=== PATIENT | female | born 1995 | race Caucasian/White ===

== ENCOUNTER 2020-02-27 19:55 | Inpatient (IN) ==
[2020-02-27] MEDS ORDERED: BUTORPHANOL 2 MG/ML VIAL IV PRN (21:45)
[2020-02-27] MEDS ORDERED: LACTATED RINGERS 1,000 ML IV ONE (21:45)
[2020-02-27] MEDS ORDERED: ONDANSETRON 4 MG/2 ML VIAL IV PRN (21:45)
[2020-02-27 22:07] LABS: Basophils % 0.1 % (0.0-0.8); Eosinophils # 0.1 10*3/uL (0.0-0.87); Eosinophils % 0.6 % (0.00-10.9); Hematocrit 31.9 VOL% (35.7-47.0); Hemoglobin 10.8 GM/DL (12.0-16.0); Immature Granulocytes % 0.3 %; Immature Granulocytes Absolute 0.03 #; Lymphocytes # 2.9 10*3/uL (1.4-4.0); Lymphocytes % 32.3 % (21.3-54.2); Mean Corpuscular HGB Conc 33.9 GM/DL (32-36); Mean Corpuscular Volume 90.1 FL (87-102); Mean Platelet Volume 9.9 FL (9.6-12.0); Monocytes % 6.5 % (1.7-12.7); Neutrophils % 60.2 % (38.7-73.9); Platelet Count 165 T/CUMM (130-400); Red Blood Count 3.54 MC/CUMM (3.8-5.5); Red Cell Distribution Width 12.6 % (9.3-17.3)
[2020-02-27 22:28] LABS: Alanine Aminotransferase 16 U/L (13-56); Albumin 2.6 G/DL (3.4-5.0); Alkaline Phosphatase 175 U/L (45-117); Aspartate Amino Transferase 17 U/L (0-37); Bilirubin,Total < 0.39 MG/DL (0.2-1.0); Blood Urea Nitrogen 13 MG/DL (7-18); Calcium 8.5 MG/DL (8.5-10.1); Estimated Glom Filtration Rate 146 ML/MIN; Glucose 93 MG/DL (74-106); Osmolality,Calculated 274.7 MOS/KG (273-304); Total Protein 6.2 G/DL (6.4-8.3)
[2020-02-28] MEDS ORDERED: OXYTOCIN/LR 20 UNIT/1,000 ML BAG IV SCH (04:00)
[2020-02-28] MEDS: LACTATED RINGERS 1,000 ML IV SCH ×3 (04:23→19:30)
[2020-02-28] MEDS ORDERED: FAMOTIDINE 20 MG/2 ML VIAL IV ONE (16:06)
[2020-02-28] MEDS ORDERED: CITRIC ACID/SODIUM CITRATE 30 ML UDCUP PO ONE (16:06)
[2020-02-28] MEDS ORDERED: PROMETHAZINE 25 MG/1 ML VIAL IM ONE (16:06)
[2020-02-28] MEDS ORDERED: hydrOXYzine HCL 25 MG/1 ML VIAL IM PRN (16:06)
[2020-02-28] MEDS ORDERED: diphenhydrAMINE 50 MG/1 ML VIAL IV PRN ×2 (16:06)
[2020-02-28] MEDS ORDERED: ePHEDrine 50 MG/ML VIAL IV PRN (16:06)
[2020-02-28] MEDS ORDERED: NALOXONE 0.4 MG/ML VIAL IV PRN (16:06)
[2020-02-28] MEDS ORDERED: CITRIC ACID/SODIUM CITRATE 30 ML UDCUP ONE (16:09)
[2020-02-28] MEDS ORDERED: fentaNYL 2 MCG/ROPIV 0.2% EPID 100 ML EPIDURAL ONE (16:10)
[2020-02-28] MEDS ORDERED: fentaNYL 2 MCG/ROPIV 0.2% EPID 100 ML EPIDURAL SCH (16:30)
[2020-02-29] MEDS ORDERED: ceFAZolin 2,000 MG in PREMIX 1 EACH IV ONE (02:23)
[2020-02-29] MEDS ORDERED: TERBUTALINE 1 MG/1 ML VIAL ONE (02:23)
[2020-02-29] MEDS ORDERED: TERBUTALINE 1 MG/1 ML VIAL SUBCUT ONE (02:24)
[2020-02-29] MEDS ORDERED: miSOPROStoL 200 MCG TABLET ONE (02:32)
[2020-02-29] MEDS ORDERED: OXYTOCIN/LR 20 UNIT/1,000 ML BAG IV ONE ×2 (02:32→03:39)
[2020-02-29] MEDS ORDERED: TRANEXAMIC ACID 1,000 MG/10 ML VIAL ONE (02:32)
[2020-02-29] MEDS ORDERED: METHYLERGONOVINE 0.2 MG/1 ML AMP ONE (02:32)
[2020-02-29] MEDS ORDERED: CARBOPROST TROMETHAMINE 250 MCG/ML AMP IM ONE (02:33)
[2020-02-29] MEDS ORDERED: LIDOCAINE MPF 2% /EPI 20 ML VIAL ONE ×2 (02:34→02:50)
[2020-02-29] MEDS ORDERED: fentaNYL 100 MCG/2 ML VIAL ONE (02:40)
[2020-02-29] MEDS ORDERED: PHENYLEPHRINE 1 MG/10 ML SYRINGE IV ONE ×3 (02:47→03:59)
[2020-02-29] MEDS ORDERED: LACTATED RINGERS 1,000 ML IV ONE (02:54)
[2020-02-29] MEDS ORDERED: ONDANSETRON 4 MG/2 ML VIAL ONE (03:02)
[2020-02-29] MEDS ORDERED: ACETAMINOPHEN 1,000 MG/100 ML VIAL IV ONE (03:12)
[2020-02-29] MEDS ORDERED: MORPHINE 10 MG/10 ML VIAL ONE (03:15)
[2020-02-29 03:25] LABS: Cord Arterial Blood HCO3 16.7 MMOL/L
[2020-02-29 03:28] LABS: Cord Venous Blood HCO3 18.4 MMOL/L; Cord Venous Blood PCO2 56.8 MMHG; Cord Venous Blood PO2 19.3
[2020-02-29] MEDS ORDERED: ACETAMINOPHEN 325 MG TABLET PO PRN (03:39)
[2020-02-29] MEDS ORDERED: DIPH/TET/ACEL PERT BOOSTER VACCINE 0.5 ML VIAL IM ONE (03:39)
[2020-02-29] MEDS ORDERED: RHO(D) IMMUNE GLOBULIN 300 MCG SYRINGE IM ONE (03:39)
[2020-02-29] MEDS ORDERED: BISACODYL 10 MG SUPP RECTAL PRN (03:39)
[2020-02-29] MEDS ORDERED: oxyCODONE/ACETAMINOPHEN 5-325 MG TABLET PO PRN (03:39)
[2020-02-29] MEDS ORDERED: MEASLES/MUMPS/RUBELLA VACCINE 0.5 ML VIAL SUBCUT ONE (03:39)
[2020-02-29] MEDS ORDERED: BENZOCAINE 20%/MENTHOL 0.5% SPRAY 56 GM CAN TOP PRN (03:39)
[2020-02-29] MEDS ORDERED: WITCH HAZEL PADS 100/JAR TOP PRN (03:39)
[2020-02-29] MEDS ORDERED: ONDANSETRON 4 MG/2 ML VIAL IV PRN (03:39)
[2020-02-29] MEDS ORDERED: HYDROCORTISONE 2.5% RECTAL CREAM 30 GM TUBE TOP PRN (03:39)
[2020-02-29] MEDS ORDERED: LANOLIN 50% CREAM 0.3 OZ TUBE TOP PRN (03:39)
[2020-02-29 05:52] LABS: Basophils % 0.1 % (0.0-0.8); Eosinophils % 0.1 % (0.00-10.9); Hematocrit 29.9 VOL% (35.7-47.0); Hemoglobin 9.8 GM/DL (12.0-16.0); Immature Granulocytes % 0.4 %; Immature Granulocytes Absolute 0.07 #; Lymphocytes # 1.5 10*3/uL (1.4-4.0); Lymphocytes % 9.4 % (21.3-54.2); Mean Corpuscular HGB Conc 32.8 GM/DL (32-36); Mean Corpuscular Volume 92.9 FL (87-102); Mean Platelet Volume 11.2 FL (9.6-12.0); Monocytes % 7.1 % (1.7-12.7); Neutrophils % 82.9 % (38.7-73.9); Platelet Count 137 T/CUMM (130-400); Red Blood Count 3.22 MC/CUMM (3.8-5.5); Red Cell Distribution Width 12.9 % (9.3-17.3); White Blood Count 16.2 T/CUMM (4-12)
[2020-02-29] MEDS: IBUPROFEN 800 MG TABLET PO PRN ×3 (05:58→20:15)
[2020-02-29] MEDS: oxyCODONE/ACETAMINOPHEN 5-325 MG TABLET PO PRN ×3 (05:58→20:15)
[2020-02-29] MEDS: LACTATED RINGERS 1,000 ML IV SCH ×2 (07:00)
[2020-02-29] MEDS: ceFAZolin 1,000 MG in SYRINGE 1 EACH IV SCH ×2 (10:58→18:50)
[2020-02-29] MEDS: DOCUSATE SODIUM 100 MG CAPSULE PO SCH (20:15)
[2020-03-01] MEDS: IBUPROFEN 800 MG TABLET PO PRN ×3 (05:02→16:10)
[2020-03-01] MEDS: oxyCODONE/ACETAMINOPHEN 5-325 MG TABLET PO PRN ×4 (05:02→22:12)
[2020-03-01] MEDS ORDERED: MAGNESIUM HYDROXIDE SUSP 30 ML UDCUP PO PRN (08:38)
[2020-03-01] MEDS: DOCUSATE SODIUM 100 MG CAPSULE PO SCH ×2 (08:56→21:05)
[2020-03-02] MEDS: oxyCODONE/ACETAMINOPHEN 5-325 MG TABLET PO PRN ×2 (03:41→08:52)
[2020-03-02 07:44] VITALS: BP 128/74
[2020-03-02] MEDS: IBUPROFEN 800 MG TABLET PO PRN (08:48)
[2020-03-02] MEDS: DOCUSATE SODIUM 100 MG CAPSULE PO SCH (08:53)
== END 2020-03-02 12:00 | disposition home or self-care (01) | DRG 788 ==
LOC: N.LDOUT 19:55 → N.LD 20:02 → N.OB 02-29 05:53
PROVIDERS: ADMIT Specialist; ATTEND Specialist
PROC: LDCSECT (ICD-10-PCS; 2020-02-29 02:30)

== ENCOUNTER 2021-10-26 05:30 | Inpatient (IN) ==
[2021-10-26] MEDS ORDERED: OXYTOCIN/LR 20 UNIT/1,000 ML BAG IV ONE ×2 (05:43→10:42)
[2021-10-26] MEDS ORDERED: CARBOPROST TROMETHAMINE 250 MCG/ML AMP IM PRN (05:43)
[2021-10-26] MEDS ORDERED: miSOPROStoL 200 MCG TABLET RECTAL PRN (05:43)
[2021-10-26] MEDS ORDERED: METHYLERGONOVINE 0.2 MG/1 ML AMP IM PRN (05:43)
[2021-10-26] MEDS ORDERED: TRANEXAMIC ACID 1,000 MG in SODIUM CHLORIDE 0.9% 100 ML IV PRN (05:43)
[2021-10-26] MEDS ORDERED: ceFAZolin 2,000 MG/50 ML DUPLEX IV ONE (05:43)
[2021-10-26] MEDS ORDERED: CITRIC ACID/SODIUM CITRATE 30 ML UDCUP PO ONE (05:43)
[2021-10-26] MEDS ORDERED: FAMOTIDINE 20 MG/2 ML VIAL IV ONE (05:43)
[2021-10-26] MEDS ORDERED: LACTATED RINGERS 1,000 ML IV SCH (06:00)
[2021-10-26 06:39] LABS: Basophils % 0.3 % (0.0-0.8); Eosinophils % 0.5 % (0.00-10.9); Hematocrit 35.9 VOL% (35.7-47.0); Hemoglobin 12.1 GM/DL (12.0-16.0); Immature Granulocytes % 0.5 %; Immature Granulocytes Absolute 0.04 #; Lymphocytes # 2.5 10*3/uL (1.4-4.0); Lymphocytes % 31.2 % (21.3-54.2); Mean Corpuscular HGB Conc 33.7 GM/DL (32-36); Mean Corpuscular Volume 90.4 FL (87-102); Mean Platelet Volume 11.3 FL (9.6-12.0); Monocytes # 0.5 10*3/uL (0.11-0.8); Monocytes % 6.3 % (1.7-12.7); Neutrophils % 61.2 % (38.7-73.9); Platelet Count 164 T/CUMM (130-400); Red Blood Count 3.97 MC/CUMM (3.8-5.5); White Blood Count 7.9 T/CUMM (4-12)
[2021-10-26] MEDS ORDERED: ONDANSETRON 4 MG/2 ML VIAL ONE (06:52)
[2021-10-26] MEDS ORDERED: BUPIVACAINE SPINAL 0.75% 2 ML AMP SPINAL ONE (06:52)
[2021-10-26] MEDS ORDERED: buprenorphine HCL 0.3 MG/ML VIAL ONE (06:52)
[2021-10-26] MEDS ORDERED: ACETAMINOPHEN INJ 1,000 MG/100 ML VIAL IV ONE (06:52)
[2021-10-26] MEDS ORDERED: DEXAMETHASONE 4 MG/1 ML VIAL ONE (06:52)
[2021-10-26] MEDS ORDERED: KETOROLAC 30 MG/1 ML VIAL ONE (06:52)
[2021-10-26] MEDS ORDERED: PHENYLEPHRINE 1 MG/10 ML SYRINGE IV ONE ×2 (06:56→08:25)
[2021-10-26] MEDS ORDERED: ePHEDrine 50 MG/ML VIAL ONE (07:20)
[2021-10-26 07:53] LABS: Cord Arterial Blood HCO3 17.8 MMOL/L
[2021-10-26 07:56] LABS: Cord Venous Blood HCO3 19.6 MMOL/L; Cord Venous Blood PCO2 63.4 MMHG; Cord Venous Blood PO2 23.2
[2021-10-26 07:59] LABS: Bacteria,Urine Occasional /HPF (Few); Mucus,Urine Moderate /LPF (Occasional); RBC,Urine 1 /HPF (0-4); Squamous Epithelial Cell,Urine Occasional /HPF (0-10)
[2021-10-26 08:06] LABS: Bilirubin,Urine Negative (Negative); Blood, Urine Negative (Negative); Glucose,Urine (UA) Negative (Negative); Ketones,Urine Negative (Negative); Nitrite,Urine Negative (Negative); Protein,Urine Negative (Negative); Urine Appearance Clear (Clear); Urine Color Yellow (Yellow); Urine Specific Gravity 1.025 (1.001-1.035); Urine Urobilinogen 0.2 eU/dL (<2.0)
[2021-10-26] MEDS ORDERED: LANOLIN 50% CREAM 0.3 OZ TUBE TOP PRN (10:42)
[2021-10-26] MEDS ORDERED: ACETAMINOPHEN 325 MG TABLET PO PRN (10:42)
[2021-10-26] MEDS ORDERED: oxyCODONE/ACETAMINOPHEN 5-325 MG TABLET PO PRN (10:42)
[2021-10-26] MEDS ORDERED: BISACODYL 10 MG SUPP RECTAL PRN (10:42)
[2021-10-26] MEDS ORDERED: RHO(D) IMMUNE GLOBULIN 300 MCG SYRINGE IM ONE (10:42)
[2021-10-26] MEDS ORDERED: DIPH/TET/ACEL PERT BOOSTER VACCINE 0.5 ML VIAL IM ONE (10:42)
[2021-10-26] MEDS ORDERED: ONDANSETRON 4 MG/2 ML VIAL IV PRN (10:42)
[2021-10-26] MEDS ORDERED: WITCH HAZEL PADS 100/JAR TOP PRN (10:42)
[2021-10-26] MEDS ORDERED: MEASLES/MUMPS/RUBELLA VACCINE 0.5 ML VIAL SUBCUT ONE (10:42)
[2021-10-26] MEDS ORDERED: BENZOCAINE 20%/MENTHOL 0.5% SPRAY 56 GM CAN TOP PRN (10:42)
[2021-10-26] MEDS ORDERED: HYDROCORTISONE 2.5% RECTAL CREAM 30 GM TUBE TOP PRN (10:42)
[2021-10-26] MEDS: DOCUSATE SODIUM 100 MG CAPSULE PO SCH ×2 (13:19→20:43)
[2021-10-26] MEDS: KETOROLAC 30 MG/1 ML VIAL IV SCH ×2 (13:36→19:25)
[2021-10-26] MEDS: ACETAMINOPHEN 500 MG TABLET PO SCH ×2 (13:51→19:26)
[2021-10-27] MEDS: ACETAMINOPHEN 500 MG TABLET PO SCH (01:57)
[2021-10-27] MEDS: KETOROLAC 30 MG/1 ML VIAL IV SCH (01:57)
[2021-10-27 06:21] LABS: Basophils % 0.1 % (0.0-0.8); Eosinophils % 0.2 % (0.00-10.9); Hematocrit 27.1 VOL% (35.7-47.0); Hemoglobin 8.8 GM/DL (12.0-16.0); Immature Granulocytes % 0.3 %; Immature Granulocytes Absolute 0.03 #; Lymphocytes # 2.7 10*3/uL (1.4-4.0); Mean Corpuscular HGB Conc 32.5 GM/DL (32-36); Mean Corpuscular Volume 93.8 FL (87-102); Mean Platelet Volume 11.5 FL (9.6-12.0); Monocytes # 0.9 10*3/uL (0.11-0.8); Monocytes % 8.5 % (1.7-12.7); Neutrophils % 63.9 % (38.7-73.9); Platelet Count 114 T/CUMM (130-400); Red Blood Count 2.89 MC/CUMM (3.8-5.5); Red Cell Distribution Width 14.3 % (9.3-17.3)
[2021-10-27 06:43] LABS: Platelet Estimate Normal
[2021-10-27] MEDS: DOCUSATE SODIUM 100 MG CAPSULE PO SCH ×2 (08:44→20:59)
[2021-10-27] MEDS: SIMETHICONE CHEW 80 MG TABLET PO PRN ×2 (08:44→20:59)
[2021-10-27] MEDS: MAGNESIUM HYDROXIDE SUSP 30 ML UDCUP PO PRN ×2 (08:44→20:59)
[2021-10-27] MEDS: IRON (CARBONYL)/VIT C/B12/FA TABLET PO SCH (08:44)
[2021-10-27] MEDS: IBUPROFEN 800 MG TABLET PO PRN ×2 (09:34→18:08)
[2021-10-27] MEDS: oxyCODONE/ACETAMINOPHEN 5-325 MG TABLET PO PRN ×2 (09:34→18:07)
[2021-10-28] MEDS: oxyCODONE/ACETAMINOPHEN 5-325 MG TABLET PO PRN (04:26)
[2021-10-28 08:56] VITALS: BP 107/63
[2021-10-28] MEDS: IRON (CARBONYL)/VIT C/B12/FA TABLET PO SCH (09:27)
[2021-10-28] MEDS: DOCUSATE SODIUM 100 MG CAPSULE PO SCH (09:27)
== END 2021-10-28 12:20 | disposition home or self-care (01) | DRG 788 ==
LOC: N.LDOUT 05:30 → N.LD 05:34 → N.OB 10:23
PROVIDERS: ADMIT Specialist; ATTEND Specialist
PROC: LDCSECT (ICD-10-PCS; 2021-10-26 06:00)